=== PATIENT | female | born 1945 | race Caucasian/White ===

== ENCOUNTER → 2019-02-18 | Outpatient (CLI) | payer MEDICARE ==
[2019-02-18 15:28] LABS: T4, Free (Free Thyroxine) 1.29 ng/dL (0.78-2.19)
--- NOTE | 2019-02-18 15:56 | US ---
EXAMINATION TYPE: US thyroid st tissue head/neck DATE OF EXAM: 02/18/2019 COMPARISON: NONE CLINICAL HISTORY: E04.2 Nontoxic multinodular goiter. GLAND SIZE: Right Lobe: 5.2 x 2.8 x 1.8 cm Overall Parenchyma: heterogenous Left Lobe: 4.8 x 2.0 x 2.8 cm Overall Parenchyma: heterogeneous Isthmus Thickness: 0.4 cm NODULES RIGHT: # of nodules measured on right: 2 1. 1.3 X 1.4 x 1.5 cm isoechoic solid nodule at the mid pole with well-defined margins. This nodul e is taller than wide and shows no intranodular vascularity. No prior here. 2. 2.9 X 2.3 x 2.9 cm isoechoic solid nodule at the mid pole with well-defined margins. This nodule is wider than tall and shows no intranodular vascularity. No prior here. LEFT: # of nodules measured on left: 1 1. 2.7 X 1.9 x 1.6 cm isoechoic solid nodule at the mid pole with well-defined margins. This nodul e is as tall as it is wide and shows no intranodular vascularity. No prior here. ISTHMUS: # of nodules measured in the isthmus: 0 Bilateral neck scanned, no evidence of lymphadenopathy. IMPRESSION: 1. Bilateral thyroid nodules
== END | disposition home or self-care (01) ==
LOC: RADUSWWP 13:25
PROVIDERS: ATTEND Internal Medicine Endocrinology, Diabetes & Metabolism
DX: E04.2 Nontoxic multinodular goiter (principal)
CPT/HCPCS: 76536; 84439; 84443

== ENCOUNTER → 2020-07-08 | Outpatient (CLI) | payer MEDICARE ==
--- NOTE | 2020-07-08 15:03 | US ---
EXAMINATION TYPE: US thyroid st tissue head/neck DATE OF EXAM: 07/08/2020 COMPARISON: US 02/18/19 CLINICAL HISTORY: 74-year-old female E04.2 Nontoxic multinodular goiter. TECHNIQUE: Multiple sonographic images of the thyroid gland are obtained. FINDINGS: GLAND SIZE: Right Lobe: 5.9 x 2.7 x 2.5 cm Overall Parenchyma: heterogenous Left Lobe: 5.1 x 2.0 x 2.0 cm Overall Parenchyma: heterogeneous Isthmus Thickness: 0.4 cm NODULES RIGHT: # of nodules measured on right: 2 1. 1.7 X 1.2 x 1.2 cm isoechoic mixed nodule at the mid pole with poorly defined margins; . This n odule is wider than tall and shows intranodular vascularity. Prior size: 1.3 x 1.4 x 1.5 cm 2. 3.1 X 2.9 x 1.8 cm isoechoic mixed nodule at the mid pole with poorly defined margins; . This no dule is wider than tall and shows intranodular vascularity. Prior size: 2.9 x 2.3 x 2.9 cm LEFT: # of nodules measured on left: 1 1. 3.5 X 2.1 x 1.7 cm isoechoic mixed nodule at the mid pole with poorly defined margins; . This n odule is wider than tall and shows intranodular vascularity. Prior size: 2.7 x 1.9 x 1.6 cm ISTHMUS: # of nodules measured in the isthmus: 0 Bilateral neck scanned, no evidence of lymphadenopathy. IMPRESSION: Thyromegaly with underlying nodules, correlate for multinodular goiter. Dominant nodule on the left m easures slightly larger at 3.5 x 2.1 cm (versus 2.7 x 1.9 cm, previously). The 2 dominant nodules on the right are relatively similar.
[2020-07-08 15:15] LABS: T4, Free (Free Thyroxine) 1.17 ng/dL (0.78-2.19)
== END | disposition home or self-care (01) ==
LOC: RADUSWWP 12:14
PROVIDERS: ATTEND Internal Medicine Endocrinology, Diabetes & Metabolism
DX: E04.2 Nontoxic multinodular goiter (principal)
CPT/HCPCS: 76536; 84439; 84443

== ENCOUNTER → 2022-07-19 | Outpatient (CLI) | payer MEDICARE ==
--- NOTE | 2022-07-19 15:08 | BD ---
EXAMINATION TYPE: Axial Bone Density DATE OF EXAM: 07/19/2022 COMPARISON: NONE CLINICAL HISTORY: 76 years year old Female. ICD-10 CODE: Z78.0 Asymptomatic menopausal state Height: 5 FT 2 IN Weight: 178 FRAX RISK QUESTIONS: Alcohol (3 or more units per day): NO Family History (Parent hip fracture): NO Glucocorticoids (More than 3mos): NO (Ex: prednisone, prednisolone, methylprednisolone, dexamethasone, and hydrocortisone). History of Fracture in Adulthood: NO Secondary Osteoporosis: 1. Type 1 Diabetes: NO 2. Hyperthyroidism: NODULES 3. Menopause before 45: NO 4. Malnutrition: NO 5. Chronic liver disease: NO Rheumatoid Arthritis: NO Current Tobacco Use: NO RISK FACTORS HISTORY OF: Surgery to Spine/Hip(right/left)/Wrist (right/left): NO Family History of Osteoporosis: NO Active: YES Diet low in dairy products/other sources of calcium: NO Postmenopausal woman: YES Take estrogen and/or progesterone medications: NONE NOW Lost more than 2 inches in height since high school: YES Frequent falls: NO Poor Health: GOOD Hyperparathyroidism: NO Adrenal Insufficiency: NO MEDICATIONS: Additional Medications: BLOOD PRESSURE MEDS. , Additional History: EXAM MEASUREMENTS: Bone mineral densitometry was performed using the [employer] System. Bone mineral density as measured about the Lumbar spine is: ----- L1-L4(G/cm2): 1.532 T Score Values are as follows: ----- L1: 1.7 ----- L2: 2.1 ----- L3: 3.7 ----- L4: 3.8 ----- L1-L4: 2.9 PREV AT [facility] Bone mineral density about the R hip (g/cm2): 0.918 Bone mineral density about the L hip (g/cm2): 0.974 T Score values are as follows: -----R Neck: -0.9 -----L Neck: -0.5 -----R Total: 0.1 -----L Total: 1.0 PREV AT [facility] FRAX%s: The graph provided illustrates a 9.2 % chance for a major osteoporotic fx and a 1.3 % chance for the hips probability for fx in 10 years time. IMPRESSION: Normal (Values between +1 and -1 indicate normal bone mass). Consider repeating this study in 5 year s or sooner if there is some new clinical indication. NOTE: T-SCORE=SD OF THE YOUNG ADULT MEAN.
[2022-07-19 15:35] LABS: T4, Free (Free Thyroxine) 1.42 ng/dL (0.800-1.800)
== END | disposition home or self-care (01) ==
LOC: RADBDWWP 09:30
PROVIDERS: ATTEND Family Medicine
DX: Z78.0 Asymptomatic menopausal state (principal)
CPT/HCPCS: 77080; 84439; 84443; 84481

== ENCOUNTER → 2022-07-19 | Outpatient (CLI) | payer MEDICARE ==
--- NOTE | 2022-07-19 10:30 | US ---
EXAMINATION TYPE: US thyroid st tissue head/neck DATE OF EXAM: 07/19/2022 COMPARISON: NONE CLINICAL HISTORY: E04.2 MULTINODULAR GOITER. thyroid nodules GLAND SIZE: Right Lobe: cm Overall Parenchyma: heterogenous Left Lobe: cm Overall Parenchyma: heterogeneous Isthmus Thickness: cm NODULES RIGHT: # of nodules measured on right: 2 1. 1.9 X 1.2 x 1.7 cm, mid, Prior size: 1.8 x 1.7 x 1.7 cm TIRADS Score: 3 TIRADS Category 3: Mildly Suspicious Composition: Solid or almost completely solid (2 points). Echogenicity: Hyperechoic or isoechoic (1 point). Shape: Wider than tall (0 points). Margin: Ill-defined (0 points). Echogenic foci: None or large comet-tail artifacts (0 points) Recommendation: If >2.5cm: FNA; If >1.5cm: Follow up at 1,3,5 years 2. 4.0 X 2.3 x 4.5 cm, lower , Prior size: 3.2 x 3.1 x 4.6 cm TIRADS Score: 3 TIRADS Category 3: Mildly Suspicious Composition: Solid or almost completely solid (2 points). Echogenicity: Hyperechoic or isoechoic (1 point). Shape: Wider than tall (0 points). Margin: Ill-defined (0 points). Echogenic foci: None or large comet-tail artifacts (0 points) Recommendation: If >2.5cm: FNA; If >1.5cm: Follow up at 1,3,5 years LEFT: # of nodules measured on left: 1 1. 2.9 X 2.0 x 2.5 cm, lower , . Prior size: 3.3 x 1.9 x 3.0 cm TIRADS Score: 3 TIRADS Category 3: Mildly Suspicious Composition: Solid or almost completely solid (2 points). Echogenicity: Hyperechoic or isoechoic (1 point). Shape: Wider than tall (0 points). Margin: Ill-defined (0 points). Echogenic foci: None or large comet-tail artifacts (0 points) Recommendation: If >2.5cm: FNA; If >1.5cm: Follow up at 1,3,5 years ISTHMUS: # of nodules measured in the isthmus: 0 Bilateral neck scanned, no evidence of lymphadenopathy. IMPRESSION: Bilateral thyroid nodules of which a right 4.0 cm thyroid nodule meets criteria for fine-needle aspir ation if not already performed.
== END | disposition home or self-care (01) ==
LOC: RADUSWWP 09:27
PROVIDERS: ATTEND Internal Medicine Endocrinology, Diabetes & Metabolism
DX: E04.2 Nontoxic multinodular goiter (principal)
CPT/HCPCS: 76536

== ENCOUNTER → 2024-09-18 | Outpatient (CLI) | payer MEDICARE ==
--- NOTE | 2024-09-18 11:00 | BD ---
EXAMINATION TYPE: Axial Bone Density DATE OF EXAM: 09/18/2024 CLINICAL HISTORY: 78 years old Female. ICD-10 CODE: Z78.0 ASYMPTOMATIC MENOPAUSAL STATE , Additional History: Height: 61.5 Weight: 198.0 FRAX RISK QUESTIONS: Alcohol (3 or more units per day): no Family History (Parent hip fracture): no Glucocorticoids (More than 3mos): no (Ex: prednisone, prednisolone, methylprednisolone, dexamethasone, and hydrocortisone). History of Fracture in Adulthood: no Secondary Osteoporosis: 1. Type 1 Diabetes: no 2. Hyperthyroidism: no 3. Menopause before 45: no 4. Malnutrition: no 5. Chronic liver disease: no Rheumatoid Arthritis: no Current Tobacco Use: no RISK FACTORS HISTORY OF: Hip Fracture (Right/Left): no Spine Fracture: no History of Wrist Fracture: no Surgery to Spine/Hip(right/left)/Wrist (right/left): no MEDICATIONS: Thyroid Medications: no Osteoporosis Medications: no EXAM MEASUREMENTS: Bone mineral densitometry was performed using the [employer] System. Bone mineral density as measured about the Lumbar spine is: ----- L1-L4(G/cm2): 1.530 T Score Values are as follows: ----- L1: 1.5 ----- L2: 2.0 ----- L3: 4.0 ----- L4: 4.1 ----- L1-L4: 2.9 Z Score Values are as follows: ----- L1: 2.5 ----- L2: 3.0 ----- L3: 5.0 ----- L4: 5.1 ----- L1-L4: 3.9 Bone mineral density has: decreased -0.1 % since study of: 07/19/2022 Bone mineral density about the R hip (g/cm2): 1.074 Bone mineral density about the L hip (g/cm2): 1.110 T Score values are as follows: -----R Neck: -0.7 -----L Neck: -0.5 -----R Total: 0.5 -----L Total: 0.8 Z Score values are as follows: -----R Neck: 0.8 -----L Neck: 1.1 -----R Total: 1.8 -----L Total: 2.1 Bone mineral density has: increased 1.4 % since study of: 07/19/2022 FRAX%s: The graph provided illustrates a 9.1 % chance for a major osteoporotic fx and a 1.3% chance f or the hips probability for fx in 10 years time. IMPRESSION: Normal (Values between +1 and -1 indicate normal bone mass). Consider repeating this study in 5 year s or sooner if there is some new clinical indication. NOTE: T-SCORE=SD OF THE YOUNG ADULT MEAN. [facility], , 09/18/2024 10:58 AM
== END | disposition home or self-care (01) ==
LOC: RADBDWWP 10:17
PROVIDERS: ATTEND Family Medicine
DX: Z78.0 Asymptomatic menopausal state (principal)
CPT/HCPCS: 77080